=== PATIENT | female | born 1990 | race Caucasian/White ===

== ENCOUNTER 2019-11-14 09:17 | Outpatient (CLI) | payer OTHER, SELFPAY ==
--- NOTE | 2019-11-14 09:28 | XR_ITS ---
WS: [id number] LUMBAR SPINE FLEXION AND EXTENSION TECHNIQUE: 3 views of the lumbar spine: Lateral neutral, flexion, and extension views. CLINICAL INFORMATION: low back pain, INTERVERTEBRAL DISC DISORDER COMPARISON: June 15, 2019 FINDINGS: Normal lumbar alignment on the neutral view. No instability on the flexion and extension views. Disc space heights and vertebral body heights are well preserved. XR/XR lumbar spine f/e only [id number] IMPRESSION: No instability on flexion-extension
== END 2019-11-14 09:18 | disposition home or self-care (01) ==
LOC: WPI 09:21
PROVIDERS: Family Provider Nurse Practitioner Family; PCP Nurse Practitioner Family; Visit Provider Licensed Practical Nurse
DX: M51.86 Other intervertebral disc disorders, lumbar region (principal)
CPT/HCPCS: 72120

== ENCOUNTER 2019-12-05 06:00 | Outpatient (RCR) | payer OTHER, SELFPAY | END 2019-12-08 23:59 | disposition home or self-care (01) | LOC: TPT 06:00 | PROVIDERS: Family Provider Nurse Practitioner Family; PCP Nurse Practitioner Family; Referring Provider Licensed Practical Nurse; Visit Provider Licensed Practical Nurse | DX: M51.17 Intervertebral disc disorders with radiculopathy, lumbosacral region (principal) | CPT/HCPCS: 97110; 97161; 97530; G0283 ==

== ENCOUNTER 2019-12-09 06:00 | Outpatient (RCR) | payer OTHER, SELFPAY | END 2020-01-08 23:59 | disposition home or self-care (01) | LOC: TPT 06:00 | PROVIDERS: Family Provider Nurse Practitioner Family; PCP Nurse Practitioner Family; Referring Provider Licensed Practical Nurse; Visit Provider Licensed Practical Nurse | DX: M51.17 Intervertebral disc disorders with radiculopathy, lumbosacral region (principal) | CPT/HCPCS: 97110; 97140; 97530; G0283 ==

== ENCOUNTER 2020-01-09 06:00 | Outpatient (RCR) | payer OTHER, SELFPAY | END 2020-02-07 23:59 | disposition home or self-care (01) | LOC: TPT 06:00 | PROVIDERS: Family Provider Nurse Practitioner Family; PCP Nurse Practitioner Family; Referring Provider Licensed Practical Nurse; Visit Provider Licensed Practical Nurse | DX: M51.17 Intervertebral disc disorders with radiculopathy, lumbosacral region (principal) | CPT/HCPCS: 97110 ==

== ENCOUNTER 2020-07-13 10:45 | Emergency (ER) | payer OTHER, SELFPAY ==
[2020-07-13 11:10] VITALS: BP 98/63; PULSE 103; RESP 14; TEMP 36.3; O2SAT 98; BMI 30.1
[2020-07-13 11:53] LABS: Bilirubin Urine 1+ (Negative); Blood Urine 2+ (Negative); Glucose Urine UA Norm (Normal); Ketones Urine Negative (Negative); Nitrate Urine Positive (Negative); Specific Gravity, Urine 1.015 (1.005-1.030); Urine Appearance Hazy (CLEAR); Urine Color Dark Yellow (Yellow); Urobilinogen Urine 1 mg/dL (Negative); pH Urine 6 (5-7)
[2020-07-13 11:54] LABS: Add Urine Microscopic? YES; Leukocyte Esterase Urine Negative (Negative); Protein Urine 1+ (Negative)
[2020-07-13 12:10] LABS: RBC Urine 0-4 /hpf (0-2); Squamous Epithelial Cell Urine 25-40 /hpf (0-5)
[2020-07-13 12:11] LABS: Bacteria Urine 2+ /hpf
[2020-07-13] MEDS: ondansetron 2 mg/ML SDV 2 mL 4 MG IVP (12:32)
[2020-07-13] MEDS: sodium chloride 0.9% 1,000 ML 999 ML IV (12:32)
[2020-07-13 12:47] LABS: Basophils % 0.3 %; Eosinophils # 0.5 10^3/uL (0.0-0.8); Eosinophils % 6.9 %; Hematocrit 43.7 % (37.0-47.0); Hemoglobin 14.4 g/dL (11.5-15.3); Lymphocytes # 0.6 10^3/uL (0.8-4.8); Lymphocytes % 8.3 %; Mean Corpuscular Hemoglobin 30.3 pg (28.0-34.0); Mean Platelet Volume 9.4 fL (7.4-10.4); Monocytes # 0.6 10^3/uL (0.2-0.9); Monocytes % 8.6 %; Neutrophils # 5.04 10^3/uL (1.8-7.7); Neutrophils % 75.6 %; Nucleated Red Blood Cells % 0 %; Platelet Count 214 10^3/cmm (130-400); Red Blood Count 4.75 10^6/uL (4.1-5.3); Red Cell Distribution Width 12.7 % (12.1-15.1); White Blood Count 6.7 10^3/uL (4.0-10.0)
--- NOTE | 2020-07-13 13:00 | ED_ITS ---
HPI - General Adult General: Chief complaint: General Medical Stated complaint: BLADDER INFECTION/N/EVANS Time Seen by Provider: 07/13/20 11:39 Source: patient Mode of arrival: ambulatory Limitations: no limitations History of Present Illness: HPI narrative: 29-year-old female patient presents to the emergency department stating she has had nausea some vomiting. Patient states she was recently diagnosed with a urinary tract infection and was placed on antibiotics. Patient states she just feels weak from this. Patient denies any urinary symptoms at this time. Patient denies any fever. Patient denies any flank pain. Patient denies any abdominal pain. Associated symptoms: Reports nausea and vomiting; Deny chest pain, dyspnea, headache(s), rash or palpitations Review of Systems General: Reports: 10 or more systems reviewed and unremarkable except in HPI and below Const: Reports: body aches; Denies: fever(s) or chills Eyes: Denies: change in vision or blurry vision ENMT: Denies: throat pain, dental pain or ear or mastoid pain Card: Denies: chest pain, palpitations or irregular heart rhythm Resp: Denies: dyspnea or productive cough GI: Reports: nausea and vomiting; Denies: abdominal pain : Denies: flank pain, difficulty voiding, dysuria, urinary frequency or urinary urgency Musc: Denies: neck pain or back pain Skin/Breast: Denies: rash Neuro: Denies: headache(s), numbness in extremities or weakness in extremities Psych: Denies: anxiety, suicidal ideation or homicidal ideation FOR[facility]LY [facility] ED PFSH: Medical History Intervertebral disc disorder with radiculopathy of lumbosacral region Family History Father Hypertension Social History Smoking and tobacco status: current every day smoker Alcohol intake: current Alcohol intake frequency: holidays/special occasions only Household members: family and children Marital status: Single Current occupational status: employed Current occupation: Logistics History of recent travel: No Physical Exam Const: COMMON NORMALS: no acute distress, average body habitus, patient oriented x3, no limitations, healthy appearing, alert and well nourished HENMT: COMMON NORMALS: normocephalic, atraumatic, hearing grossly normal bilaterally, external ears normal, EAC's normal, TM's normal bilaterally, Normal external nose present, Normal nasal mucous membranes and turbinates present, moist oral mucous membranes, oropharynx normal, dentition normal and gingiva normal HEAD & SCALP: normocephalic and atraumatic NOSE: Normal external nose present and Normal nasal mucous membranes and turbinates present EXTERNAL EAR: Yes external ears normal EXTERNAL AUDITORY CANAL: EAC's normal TYMPANIC MEMBRANE: TM's normal bilaterally Eye: COMMON NORMALS: Equal, round and reactive pupils present, EOMs intact bi laterally, conjunctivae normal, no scleral icterus, no papilledema, normal visual gasca by confrontation and fundi normal bilaterally CONJUNCTIVA: Yes conjunctivae normal PUPIL: Yes Equal, round and reactive pupils present DIRECT OPHTHALMOSCOPY: Yes no papilledema and Yes fundi normal bilaterally Neck/C-Spine: COMMON NORMALS: full ROM, no lymphadenopathy, supple, no meningeal signs, Thyroid normal and No carotid bruits THYROID: Thyroid normal Chest: COMMONS NORMALS: normal inspection of the chest, normal palpation of entire chest wall, normal inspection of the breasts and normal palpation of the breasts Resp: COMMON NORMALS: normal respiratory effort, No retractions, No use of accessory muscles, clear to auscultation bilaterally and percussion normal AUSCULTATION: clear to auscultation bilaterally PERCUSSION: percussion normal Cardio: COMMON NORMALS: regular rate and regular rhythm RATE: regular rate RHYTHM: regular rhythm GI: COMMON NORMALS: Normal to inspection, nondistended, normoactive bowel sounds present, Soft to palpation, non-tender, No hepatosplenomegaly present, no masses and no bruits PALPATION: Yes Soft to palpation and Yes No hepatosplenomegaly present : COMMON NORMALS: Yes no CVA tenderness BLADDER/KIDNEY EXAM: Yes no CVA tenderness Back/Pelvis: COMMON NORMALS: no CVA tenderness, thoracic and lumbar spine normal to inspection, no thoracic nor lumbar tenderness, thoraco-lumbar ROM normal and straight leg raise negative bilaterally Extremity: COMMON NORMALS: normal to inspection, full ROM, capillary refill normal, no joint enlargement, no clubbing, cyanosis or edema, no calf tenderness and no pedal edema Neuro: COMMON NORMALS: patient oriented x3 SENSORIUM/ORIENTATION: Yes alert MENINGEAL SIGNS: Yes no meningeal signs Psych: COMMON NORMALS: mental status grossly normal, Normal thought process present, cooperative, normal affect, speech normal, activity/motor behavior normal, denies hallucinations, denies homicidal ideation and denies suicidal ideation SPEECH: Yes normal speech THOUGHT PROCESS: Normal thought process present Skin: COMMON NORMALS: no rashes or lesions noted, no wounds, turgor normal, no jaundice, no petechiae and no mottling GENERAL SKIN EXAM: no rashes or lesions noted and turgor normal Course Vital Signs: Vital signs: Vital Signs Temperature 97.3 F L 07/13/20 11:10 Pulse Rate 103 H 07/13/20 11:10 Respiratory Rate 14 07/13/20 11:10 Blood Pressure 98/63 07/13/20 11:10 Pulse Oximetry 98 07/13/20 11:10 MDM - General Adult MDM Narrative: Medical decision making narrative: Pt is well appearing non toxic and in no acute distress. 29-year-old female patient presents to the emergency department stating she has had nausea some vomiting. Patient states she was recently diagnosed with a urinary tract infection and was placed on antibiotics. Patient states she just feels weak from this. Patient denies any urinary symptoms at this time. Patient denies any fever. Patient denies any flank pain. Patient denies any abdominal pain Pt does not have abd tenderness pt does not have cva tenderness. Pt tolerated po fluids while here in the ER. Pt was given Zofran for nausea and had clinical improvement Based on patients urine results I will have her stop her bactrim and place her on Cipro at this time. I will send patient home with zofran. I do not suspect patient to have pyelonephritis at this time as patient does not have any back pain CVA tenderness patient is afebrile. Patient did receive 2 L of normal saline and did have some clinical improvement with this. I did order a COVID test on patient. I have advised patient until those results come back patient needs to self quarantine at home. I also discussed concerning findings for pyelonephritis when the patient should return to the emergency department for prompt attention. At this time I do not feel any further testing is warranted. Patient's labs did not reveal any other concerning findings other than her urine which revealed a urinary tract infection. Patient is medically cleared and appropriate for discharge Differential Diagnosis: Differential Diagnosis: UTI, pyelonephritis, kidney stone, COVID Lab Data: Labs: Lab Results 07/13/20 07/13/20 07/13/20 Range/Units 11:15 12:28 12:28 WBC 6.7 (4.0-10.0) 10^3/ uL RBC 4.75 (4.1-5.3) 10^6/u L Hgb 14.4 (11.5-15.3) g/dL Hct 43.7 (37.0-47.0) % MCV 92.0 (81-99) fL MCH 30.3 (28.0-34.0) pg MCHC 33.0 (30.0-36.0) g/dL RDW 12.7 (12.1-15.1) % Plt Count 214 (130-400) 10^3/c mm MPV 9.4 (7.4-10.4) fL Neut % (Auto) 75.6 % Lymph % (Auto) 8.3 % Nicollet % (Auto) 8.6 % Eos % (Auto) 6.9 % Baso % (Auto) 0.3 % Neut # (Auto) 5.04 (1.8-7.7) 10^3/u L Lymph # (Auto) 0.6 L (0.8-4.8) 10^3/u L Nicollet # (Auto) 0.6 (0.2-0.9) 10^3/u L Eos # (Auto) 0.5 (0.0-0.8) 10^3/u L Baso # (Auto) 0.0 (0.0-0.1) 10^3/u L Nucleated RBC % (a uto) 0 % Nucleated RBCs # 0.0 /100WBC Sodium 131 L (136-145) mmol/L Potassium 4.4 (3.5-5.1) mmol/L Chloride 95 L (98-107) mmol/L Carbon Dioxide 25 (22-29) mmol/L Anion Gap 15.4 (5-19) BUN 8 (6-20) mg/dL Creatinine 0.7 (0.5-0.9) mg/dL GFR Calculation 97.6 (90-130) mL/min Glucose 93 (65-115) mg/dL Calculated Osmolal ity 270 L (285-295) mOsm/k g Calcium 9.2 (8.5-10.5) mg/dL Total Bilirubin 0.3 (0.15-1.2) mg/dL AST 8 (0-32) U/L ALT 23 (0-33) U/L Alkaline Phosphata se 59 (35-105) IU/L Total Protein 7.2 (6.6-8.7) g/dL Albumin 4.3 (3.5-5.2) g/dL Globulin 2.9 (1.3-4.6) g/dL Urine Color Dark yellow (Yellow) Urine Appearance Hazy A (CLEAR) Urine pH 6 (5-7) Ur Specific Gravit y 1.015 (1.005-1.030) Urine Protein 1+ H (Negative) Urine Glucose (UA) Norm (Normal) Urine Ketones Negative (Negative) Urine Blood 2+ H (Negative) Urine Nitrate Positive H (Negative) Urine Bilirubin 1+ H (Negative) Urine Urobilinogen 1 H (Negative) mg/dL Ur Leukocyte Olivia ase Negative (Negative) Urine RBC 0-4 H (0-2) /hpf Urine WBC 10-15 H (0-5) /hpf Ur Squamous Epith Cells 25-40 H (0-5) /hpf Amorphous Sediment Not Reportable Urine Bacteria 2+ H (NONE) /hpf Discharge Plan Discharge Patient Disposition: Home Clinical Impression: Urinary tract infection Qualifiers: Urinary tract infection type: acute cystitis Hematuria presence: without hem aturia Qualified Code(s): N30.00 - Acute cystitis without hematuria Condition: Stable Prescriptions: New Cipro 250 mg tablet 250 mg PO BID 5 Days Qty: 10 RF: 0 Zofran 4 mg tablet 4 mg PO Q8H Qty: 14 RF: 0 No Action phentermine 37.5 mg capsule 37.5 mg PO DAILY RF: 0 ibuprofen 200 mg tablet 400 mg PO Q6H PRN (Reason: PAIN/FEVER) RF: 0 sulfamethoxazole-trimethoprim 800-160 mg tablet 1 tab PO DAILY RF: 0 Discharge Orders: Discharge Order (Routine); Ordered 07/13/20 Ordered By: Allyson Harris Referrals: Funmi Serrano APN [Primary Care Provider] - Discharge Diet: Advance as tolerated Discharge Activity: Increase activity as tolerated Activity Restrictions/Additional Instructions: PLease follow up with your PCP Please take antibiotics as prescribed please stop taking your previously prescribed Please take Zofran as needed for nausea Please stay hydrated Please return to ER with any worsening of symotoms, inability to keep fluids down worsening of pain Please self quarantine until Covid results are known Coding Level of Care Code ED General Counselor for Yamileth Fwdebra Exam Comprehensive
[2020-07-13 13:05] LABS: Alanine Aminotransferase 23 U/L (0-33); Albumin Level 4.3 g/dL (3.5-5.2); Alkaline Phosphatase 59 IU/L (35-105); Anion Gap 15.4 (5-19); Aspartate Amino Transferase 8 U/L (0-32); Blood Urea Nitrogen 8 mg/dL (6-20); Calcium 9.2 mg/dL (8.5-10.5); Carbon Dioxide 25 mmol/L (22-29); Chloride 95 mmol/L (98-107); Globulin 2.9 g/dL (1.3-4.6); Glomerular Filtration Rate 97.6 mL/min (90-130); Glucose 93 mg/dL (65-115); Osmolality Calculated 270 mOsm/kg (285-295); Potassium 4.4 mmol/L (3.5-5.1); Sodium 131 mmol/L (136-145); Total Bilirubin 0.3 mg/dL (0.15-1.2); Total Protein 7.2 g/dL (6.6-8.7)
[2020-07-13 14:51] VITALS: BP 105/78; PULSE 91; RESP 16; O2SAT 100
[2020-07-14 21:49] LABS: Coronavirus Lab Test PTC Negative
--- NOTE | 2020-07-15 09:01 | PC.NURSE ---
pt contacted and given the results of her COVID test
== END 2020-07-13 14:51 | disposition home or self-care (01) ==
PROVIDERS: Emergency Provider Registered Nurse; PCP Nurse Practitioner Family
DX: N30.00 Acute cystitis without hematuria (principal); F17.210 Nicotine dependence, cigarettes, uncomplicated
CPT/HCPCS: 12345; 80053; 81001; 85025; 87635; 96361; 96374; 99283; J2405; J7030

== ENCOUNTER 2020-12-15 15:34 | Outpatient (CLI) | payer OTHER, SELFPAY ==
--- NOTE | 2020-12-15 15:43 | XR_ITS ---
WS: [id number] LEFT HAND: 3 VIEW(S) TECHNIQUE: PA, oblique and lateral. HISTORY: PAIN IN LEFT HAND, AND LEFT RING FINGER COMPARISON: None available. Suspect small avulsion fracture from the base of the middle phalanx of the fourth digit. This could b e a small osteophyte but as this is the location of pain and there is soft tissue edema this is likel y a small avulsion fracture. No additional abnormality. XR/XR hand LT min 3V* [id number] IMPRESSION: Tiny avulsion fracture from the volar surface base middle phalanx fourth finger .
== END 2020-12-15 15:35 | disposition home or self-care (01) ==
PROVIDERS: PCP Nurse Practitioner Family; Visit Provider Nurse Practitioner Family
DX: S62.625A Displaced fracture of middle phalanx of left ring finger, initial encounter for closed fracture (principal); X58.XXXA Exposure to other specified factors, initial encounter
CPT/HCPCS: 73130

== ENCOUNTER → 2021-05-11 12:54 | Outpatient (BNVA) | payer OTHER, SELFPAY | PROVIDERS: PCP Nurse Practitioner Family; Visit Provider Nurse Practitioner Family | DX: Z20.822 Contact with and (suspected) exposure to COVID-19 (principal) | CPT/HCPCS: 87635 ==

== ENCOUNTER → 2021-05-29 14:30 | Outpatient (BNVA) | payer OTHER, SELFPAY | PROVIDERS: PCP Nurse Practitioner Family; Visit Provider Obstetrics & Gynecology | DX: Z12.4 Encounter for screening for malignant neoplasm of cervix (principal) | CPT/HCPCS: 88175 ==

== ENCOUNTER 2025-08-03 19:22 | Emergency (ER) | payer OTHER, SELFPAY ==
--- OUTSIDE RECORDS SUMMARY | 2025-08-02 05:00 | XMS_ITS ---
Author Organization [facility] Address [address] [place] [address] Care Team Providers Care Family Services Specialist Name Role Phone Zach, [facility] Primary Care Provider LAKSHMI JIMENEZ Unavailable Unavailable Results Component Value Reference Range Notes UA Without Micro-Auto, [place] - [id number] Reviewed date:08/02/2025 11:42:25 AM Interpretation: Performing Lab: Notes/Report: Color straw Clarity clear Glucose neg Bili 1+ Ketones neg Sp Fletcher 1.025 Blood 10+ pH 6.0 Protein +15 Urobili 0.2 Nitrites neg Leukocytes neg REASON FOR VISIT Patient to clinic to drop off urine for possible UTI. Medications Medication SIG (Take, Route, Frequency, Duration) Notes Start Date End Date Status Sulfamethoxazole-Trimeth oprim 800-160 MG Tablet 1 tablet Orally twice a day; Duration: 10 08/02/2025 08/22/2025 Active Phentermine HCl 37.5 MG Tablet TAKE 1 TABLET BY MOUTH ONCE DAILY FOR 30 DAYS Oral; Duration: 30 Days 07/22/2025 08/21/2025 Active Terbinafine HCl 250 MG Tablet 1 tablet Orally Once a day; Duration: 30 days Not-Takin g Norethindrone 0.35 MG Tablet Take 1 tablet by mouth once daily; Duration: 28 Active Ibuprofen 800 MG Tablet 1 tab Orally Thr ee times a day pc prn inflammatory pain; Duration: 30 days 04/29/2025 Active Encounters Encounter Location Date Provider Diagnosis [facility] Office [address] [address] 08/02/2025 [facility] Dysuria R30.0 and Hematuria R31.9 Assessments Encounter Date Diagnosis (ICD Code) Assessment Notes Treatment Notes Treatment Clinical Notes Section Notes 08/02/2025 Dysuria (ICD-10 - R30.0) Called patient with results and information about script.Go to ER with any issues over weekend. 08/02/2025 Hematuria (ICD-10 - R31.9) Plan Of Treatment Medication Medication Name Sig Start Date Stop Date Notes Sulfamethoxazole-Trimethopri m 800-160 MG Tablet 1 tablet Orally twice a day; Duration: 08/02/2025 08/22/2025 Treatment Notes Assessment Notes Dysuria Called patient with results and information about script.Go to ER with any issues over weekend. Next Appt Details Provider Name:Funmi Serrano, 08/22/2025 04:20:00 PM, [address] [place] [address], [address], [phone], Progress Notes * ANAHY KWAN DDOB:[birth year] (35 yo F)Acc No.[id number]:08/02/2025 Progress Note Patient: Deanna NEWTON ANAHY Marc Provider: Laverne Serrano CHECK PROCESSING CLERK :1990 A ge:35 Y S ex:Female Date:08/02/2025 Address:[address] [place], [place] [id number] Check In:10:00 AM CSTCheck O ut:10:09 AM RUG SETTER VELVET Subjective: * Chief Complaints: * P atient to clinic to drop off urine for possible UTI. * Medications: T akingIbuprofen 800 MG Tablet 1 tab Orally Three times a day pc prn inflammatory pain Norethindrone 0.35 MG Tablet Take 1 tablet by mouth once daily Phentermine HCl 37.5 MG Tablet TAKE 1 TABLET BY MOUTH ONCE DAILY FOR 30 DAYS Oral , stop date 08/21/2025Taking Ibuprofen 800 MG Tablet 1 tab Orally Three times a day pc prn inflammatory pain Taking Norethindrone 0.35 MG Tablet Take 1 tablet by mouth once daily Taking Phentermine HCl 37.5 MG Tablet TAKE 1 TABLET BY MOUTH ONCE DAILY FOR 30 DAYS Oral , stop date 08/21/2025Not-TakingTerbinafine HCl 250 MG Tablet 1 tablet Orally Once a day Not-Taking Terbinafine HCl 250 MG Tablet 1 tablet Orally Once a day Assessment: * Assessment: 1. D ysuria - R30.0 (Primary) 2 . H ematuria - R31.9 Plan: * Treatment: Value Reference Range C olor straw * C larity clear * G lucose neg * B vivian 1+ * K etones neg * S p Fletcher 1.025 * B lood 10+ * p H 6.0 * P rotein +15 * U robili 0.2 * N itrites neg * L eukocytes neg Notes: Called patient with results and information about script.Go to ER with any issues over weekend.???2.?Hematuria? Start Sulfamethoxazole-Trimethoprim Tablet, 800-160 MG, 1 tablet, Orally, twice a day, 10, 20, Start Date: 08/02/2025, Stop Date: 08/22/2025, Refills 1.?? * Procedure Codes: 8 1003 URINALYSIS, AUTO, W/O SCOPE, Modifiers: QW Billing Information: * Procedure Codes: 70952 URINALYSIS, AUTO, W/O SCOPE. Modifiers: QW * Sign off status: Completed true * Provider: Laverne Serrano APRN Date: Generated for Etienne gifford/Rekha/Ileana on: 07:28 PM CDT
[2025-08-03 19:26] VITALS: BP 118/80; PULSE 110; RESP 18; TEMP 36.8; O2SAT 98; BMI 31.8
--- OUTSIDE RECORDS SUMMARY | 2025-08-03 19:28 | XMS_ITS | Patient Health Record ---
Author Organization [facility] Address [address] [place] [address] Care Team Providers Care Director Service Name Role Phone Serrano, Funmi Primary Care Provider [phone] LAKSHMI JIMENEZ Unavailable Unavailable Allergies No Known Allergies Results Component Value Reference Range Flag Notes UA Without Micro-[place], [place] - [address] Reviewed date:08/02/2025 11:42:25 AM Interpretation: Performing Lab: Notes/Report: Color straw Clarity clear Glucose neg Bili 1+ Ketones neg Sp [place] 1.025 Blood 10+ pH 6.0 Protein +15 Urobili 0.2 Nitrites neg Leukocytes neg Hemoglobin A1c 37477 Reviewed date:2025 01:02:17 PM Interpretation: Performing Lab: Notes/Report: Diagnosis Description: Encounter for screening for lipoid disorders Hgb A1c 5.1 3.8-6.4 % Interpretation Of Hgb A1c: 4.5-6.2 % nondiabetics. >7.0 % diabetics. EAG 100 NA Estimated Aver age Glucose(EAG). CBC w\ Auto Diff 16829 Reviewed date:2025 01:02:17 PM Interpretation:Normal Performing Lab: Notes/Report: Diagnosis Description: Overweight or obesity WBC 9.7 4.5-11.0 X10'3 RBC 4.79 4.00-5.20 X10'6 Hgb 14.7 12.0-16.0 G/DL Hct 46.0 36.0-46.0 % MCV 96.0 80.0-100.0 FL MCH 30.7 27.0-31.0 PG MCHC 32.0 31.0-37.0 G/DL Platelet 321 150-400 X10'3 RDW-SD 47.3 35.0-49.0 FL RDW-CV 13.2 12.2-15.6 % MPV 9.5 9.2-12.0 FL Neutro Auto% 62.5 40.0-70.0 % Lymph Auto% 27.4 22.0-44.0 % [place] Auto% 5.4 3.0-7.0 % Eos Auto% 3.7 2.0-4.0 % Baso Auto% 0.8 0.0-1.0 % Imm Gran% .2 .0-.4 % Neutro Abs 6.07 .80-7.70 Absolute Neutrophil Count 6070 NA Lymph Abs 2.66 .10-4.10 [place] Abs .52 .20-1.00 Eos Abs .36 .00-.40 Baso Abs .08 .00-.20 Imm Gran Abs .02 .00-.10 NRBC# .00 .00-.20 X10'3 NRBC% .00 .00-.20 /100 int act WBC's Lipid Panel Reflex DLDL 8006 1, 99524 Reviewed date:2025 01:02:17 PM Interpretation: Performing Lab: Notes/Report: Diagnosis Description: Encounter for screening for lipoid disorders Trig 105 NA 0-4 yr 34-112 5-9 yr 32-105 0-4 yr 22-99 10-14 yr 37-131 Classification Guidelines:Triglycerides 15-19 yr 39-132 Children: Male Adults: >20yrs Desirable <150 Borderline High 150-199 5-9 yr 30-101 10-14 yr 32-125 15-19 yr 37-148 High 200-499 Very high >=500 Children: Female Chol 163 <=200 MG/DL HDL 38 39-96 MG/DL LOW 5-9y 38-75 15-19y 30-63 Female: 5-9y 36-73 10-14y 37-70 10-14y 37-74 15-19y 35-74 >=20y 40-59 >=20y 40-59 Male: Reference Ranges:HDL CH/HDL 4.2 0.0-4.9 RATIO LDL 104 0-130 MG/DL LDL result is inaccurate , if Trig is >400 mg/dl. See DLDL result. Thyroid Stimulating Hormone (TSH) 85102 Reviewed date:2025 01:02:17 PM Interpretation: Performing Lab: Notes/Report: Diagnosis Description: Encounter for screening for other suspected endocrine disorder TSH 2.762 .358-3.740 MlU/ML Comprehensive Metabolic Pane l (CMP) 26499 Reviewed date:2025 01:02:17 PM Interpretation: Performing Lab: Notes/Report: Diagnosis Description: Overweight or obesity Glucose Serum 93 71-110 MG/DL Testing p erformed at [facility], [address] [place] [address] [place] [address]. CLIA ID#: [id number] BUN 9 7-21 MG/DL Creat .67 .51-1.17 MG/DL W-msnhex-p-benzoquinone imine (NAPQI) is a metabolite of acetaminophen, NAPQI concentrations of apparoximately 10 mg/L correlation to toxic levels of acetaminophen demonstrates a greater than or equil to 10% change in results. NAPQI concentrations greater than this may lead to falsely depressed results for patient samples. Use of this assay is not recommended for patients undergoing treatment with phenindione, due to the potential for falsely depressed results. GFR 115.5 NA Calculation pe rformed from GFR calculator provided by the [employer]. Glomerular Filtration rate(GRF) is the best overall index of kidney function. Normal GFR varies according to age,sex, body size, and declines with age. The [employer] recommends using the CKD-EPI Creatinine Equation(2020) to estimate GFR. BUN/Creat Ratio 13.4 12.0-20.0 % Total Protein 7.4 5.8-8.0 G/DL Albumin 4.5 3.2-4.8 G/DL Globulin 2.9 2.3-3.5 G/DL Alb/Glob 1.6 0.8-2.2 Calcium 9.4 8.7-10.4 MG/DL Sodium 140 136-145 MMOL/L Potassium 4.2 3.5-5.1 MMOL/L Chloride 102 98-107 MMOL/L CO2 27.2 20.0-31.0 MMOL/L Anion Gap 15 5-15 Alk Phos 60 46-116 Bili Total .3 .3-1.2 MG/DL Use of this assay is not recommended for patients undergoing treatment with eltrombopag due to the potential for falsely elevated results. AST/SGOT 8 15-37 UNIT/L LOW ALT/SGPT 19 12-78 UNIT/L [place] Serum,Calculated 288 280-300 MOSM/KG Cervical Cancer Screen 36967 , 95592 Reviewed date:05/24/2025 12:24:34 PM Interpretation:Normal Performing Lab: Notes/Report: Diagnosis Description: Encounter for screening for malignant neoplasm of cervix Cervical Cancer Screen 39030 , 02394 Reviewed date:05/24/2025 12:24:34 PM Interpretation:Normal Performing Lab: Notes/Report: Diagnosis Description: Encounter for screening for malignant neoplasm of cervix Reason For Referral No Information Medications Medication SIG (Take, Route, Frequency, Duration) Notes Start Date End Date Status Sulfamethoxazole-Trimeth oprim 800-160 MG Tablet 1 tablet Orally twice a day; Duration: 08/02/2025 08/22/2025 Active Phentermine HCl 37.5 MG [...] inflammatory pain; Duration: 30 days 04/29/2025 Active Immunizations Vaccine Route Administration Date Status Comme nts Flucelvax Trivalent, Syringe 0.5 mL, PF Unknown 024 Refused Social History Tobacco Use: Social History Observation Description Date Details (start date - stop date) Current Smoker NA - NA Social History Depression Screening Social Info Question Answer Notes depression screening findings Findings Negative (0 -4) PHQ-9 Little interest or p jonathan in doing things Not at all Feeling down, depressed, or hopeless Not at all Trouble falling or staying asleep, or sleeping t oo much Not at all Feeling tired or having little energy Not at all Poor appetite or overeating Not at all Feeling bad about yourself, or that you are a failure, or have let yourself or your family down Not at all Trouble concentrating on thi ngs, such as reading the newspaper or watching television Not at all Moving or speaking so slowly that other people could have noticed. Or the opposite ? being so fidgety or restless that you have been moving around a lot more than usual Not at all Thoughts that you would be b margaux off , or of hurting yourself in some way Not at all Total Score 0 Drugs/Alcohol: Social Info Question Answer Notes Alcohol Screen (Audit-C) Did you have a drink containing alcohol in the past year? No Points 0 Interpretation Negative Tobacco Use: Social Info Question Answer Notes Tobacco Control (Standard) Tobacco use: Current smoker How often do you smoke cigarettes? Every day How many cigarettes a day do you smoke? 21-30 Are you interested in quitting? Not ready to quit Section Notes: Depression screen 07/05/2024 score 0, PHQ9 03/28/2025 Depression screen 05/20/2023 score 0 Depression screen 05/20/2023 score 0 Depression screen 07/05/2024 score 0 Depression screen 07/05/2024 score 0 Depression screen 07/05/2024 score 0 Depression screen 07/05/2024 score 0 Depression screen 07/05/2024 score 0 Depression screen 07/05/2024 score 0 Depression screen 07/05/2024 score 0 Depression screen 07/05/2024 score 0, PHQ9 03/28/2025 Depression screen 07/05/2024 score 0, PHQ9 03/28/2025 Depression screen 07/05/2024 score 0, PHQ9 03/28/2025 Depression screen 07/05/2024 score 0 Depression screen 05/20/2023 score 0 Depression screen 05/20/2023 score 0 Depression screen 05/20/2023 score 0 Depression screen 05/20/2023 score 0 Depression screen 05/20/2023 score 0 Depression screen 05/20/2023 score 0 Depression screen 05/20/2023 score 0 Depression screen 05/20/2023 score 0 Depression screen 05/20/2023 score 0 08/10/22 PHQ9 08/10/22 PHQ9 Depression screen 05/20/2023 score 0 Depression screen 07/05/2024 score 0, PHQ9 03/28/2025 Problems Problem Type SNOMED Code ICD Code Onset Dates Problem Status W/U Status Risk Notes Problem Tobacco user (048409264) Nicotine dependence, cigarettes, uncomplicated (F17.210) Active confirmed Problem Sinusitis (54835604) Sinusitis (J32.9) Active confirmed Problem Obesity (502504214) Obesity (BMI 30-39.9) (E66.9) Active confirmed Problem Overweight (265827067) Overweight (BMI 25.0-29.9) (E66.3) Active confirmed Problem Body mass index 30.00 to 34.99 (7596673956266 07) Body mass index [BMI] 31.0-31.9, adult (Z68.31) Active confirmed Problem Body mass index 30.00 to 34.99 (3706466091453 07) Body mass index [BMI] 32.0-32.9, adult (Z68.32) Active confirmed Problem Body mass index 30.00 to 34.99 (8689068220957 07) Body mass index [BMI] 33.0-33.9, adult (Z68.33) Active confirmed Problem Obese class II (7407975900784 05) Body mass index [BMI] 35.0-35.9, adult (Z68.35) Active confirmed Problem Body mass index 35.00 to 39.99 (9408798184312 05) Body mass index [BMI] 36.0-36.9, adult (Z68.36) Active confirmed Problem Body mass index 35.00 to 39.99 (1720880865510 05) Body mass index [BMI] 37.0-37.9, adult (Z68.37) Active confirmed Vital Signs Heart Rate 100 /min 07/22/2025 Temperature 97.3 degrees Fahrenheit 07/22/2025 Respiratory Rate 18 /min 07/22/2025 Blood pressure diastolic 73 mm Hg 07/22/2025 Oximetry 99 % 07/22/2025 Height-cm 162.56 cm 07/22/2025 Weight-kg 81.65 kg 07/22/2025 Height 64 in 07/22/2025 Blood pressure systolic 103 mm Hg 07/22/2025 Weight 180 lbs 07/22/2025 BMI 30.89 kg/m2 07/22/2025 Encounters Encounter Location Date Provider Diagnosis [facility] Office [address] [address] 09/03/2024 Funmi Serrano Sinusitis J32.9 and Obesity (BMI 30-39.9) E66.9 [facility] [place] [facility] [address] [place] [address] 10/29/2024 Funmi Serrano Obesity (BMI 30-39.9 ) E66.9 [facility] [address] [facility] [address] [place] [address] 12/04/2024 Funmi Serrano Obesity (BMI 30-39.9 ) E66.9 [facility] [address] [place] [address] 12/31/2024 Funmi Serrano Obesity (BMI 30-39.9 ) E66.9 [facility] [address] [place] [address] 01/31/2025 Funmi Serrano Obesity (BMI 30-39.9 ) E66.9 [facility] [address] [place] [address] 02/19/2025 Funmi Serrano Obesity (BMI 30-39.9 ) E66.9 and Weight gain R63.5 [facility] [place] [facility] [address] [place] [address], [place] [address] 03/28/2025 Funmi Serrano Depression screen Z1 3.31 and Obesity (BMI 30-39.9) E66.9 [facility] [address] [place] [address] 04/29/2025 Funmi Serrano Obesity (BMI 30-39.9 ) E66.9 ; Chronic lumbar radiculopathy M54.16 and Cervical cancer screening Z12.4 [facility] [place] [facility] [address] [place] [address] 05/30/2025 Funmi Serrano Obesity (BMI 30-39.9 ) E66.9 [facility] [address] [place] [address] 07/01/2025 Funmi Serrano Obesity (BMI 30-39.9 ) E66.9 ; Encounter for weight management Z76.89 ; Thyroid disorder screen Z13.29 and Lipid screening Z13.220 [facility] [address] [place] [address] 07/17/2025 [facility] Thyroid disorder scr een Z13.29 and Lipid screening Z13.220 [facility] Office [address] [address] 07/22/2025 [facility] Obesity (BMI 30-39.9 ) E66.9 and Weight gain R63.5 [facility] [address] [address] 08/02/2025 [facility] Dysuria R30.0 and Hematuria R31.9 [facility] [address] [address] 08/30/2024 [facility] Encounter for immunization Z23 and Immunization not carried out because of patient refusal Z28.21 Assessments Encounter Date Diagnosis (ICD Code) Assessment Notes Treatment Notes Treatment Clinical Notes Section Notes 07/01/2025 Encounter for weight management (ICD-10 - Z76.89) 08/02/2025 Dysuria (ICD-10 - R30.0) Called patient with results and information about script.Go to ER with any issues over weekend. 08/02/2025 Hematuria (ICD-10 - R31.9) 07/17/2025 Lipid screening (ICD-10 - Z13.220) Labs for TWard, orders in chart. 07/17/2025 Thyroid disorder screen (ICD-10 - Z13.29) Labs for TWard, orders in chart. 05/30/2025 Obesity (BMI 30-39.9) (ICD-10 - E66.9) Discussed with the diet, increase water intake, increase activity, decrease calorie intake, take medication as directed; phentermine e script to patient pharmacy. Patient to lose minimum of 4 pounds and return to clinic 1 month and prn. Pts questions asked and answered. Discharged to home. 03/28/2025 Obesity (BMI 30-39.9) (ICD-10 - E66.9) Discussed with the diet, increase water intake, increase activity, decrease calorie intake, take medication as directed; phentermine e script to patient pharmacy. Patient to lose minimum of 4 pounds and return to clinic 1 month and prn. Pts questions asked and answered. Discharged to home. 03/28/2025 Depression screen (ICD-10 - Z13.31) 02/19/2025 Obesity (BMI 30-39.9) (ICD-10 - E66.9) Discussed with the diet, increase water intake, increase activity, decrease calorie intake, take medication as directed; phentermine e script to patient pharmacy. Patient to lose minimum of 4 pounds and return to clinic 1 month and prn. Pts questions asked and answered. Discharged to home. 02/19/2025 Weight gain (ICD-10 - R63.5) 01/31/2025 Obesity (BMI 30-39.9) (ICD-10 - E66.9) intermittant fasting handout 12/31/2024 Obesity (BMI 30-39.9) (ICD-10 - E66.9) Discussed with the diet, increase water intake, increase activity, decrease calorie intake, take medication as directed; phentermine e script to patient pharmacy. Patient to lose minimum of 4 pounds and return to clinic 1 month and prn. Pts questions asked and answered. Discharged to home. 12/04/2024 Obesity (BMI 30-39.9) (ICD-10 - E66.9) Discussed with the diet, increase water intake, increase activity, decrease calorie intake, take medication as directed; phentermine e script to patient pharmacy. Patient to lose minimum of 4 pounds and return to clinic 1 month and prn. Pts questions asked and answered. Discharged to home. 10/29/2024 Obesity (BMI 30-39.9) (ICD-10 - E66.9) Discussed with the diet, increase water intake, increase activity, decrease calorie intake, take medication as directed; phentermine e script to patient pharmacy. Patient to lose minimum of 4 pounds and return to clinic 1 month and prn. Pts questions asked and answered. Discharged to home. 08/30/2024 Encounter for immunization (ICD-10 - Z23) 04/29/2025 Obesity (BMI 30-39.9) (ICD-10 - E66.9) Discussed with the diet, increase water intake, increase activity, decrease calorie intake, take medication as directed; phentermine e script to patient pharmacy. Patient to lose minimum of 4 pounds and return to clinic 1 month and prn. Pts questions asked and answered. Discharged to home. 04/29/2025 Chronic lumbar radiculopathy (ICD-10 - M54.16) ibuprofen 07/01/2025 Obesity (BMI 30-39.9) (ICD-10 - E66.9) 07/22/2025 Obesity (BMI 30-39.9) (ICD-10 - E66.9) Discussed with the diet, increase water intake, increase activity, decrease calorie intake, take medication as directed; phentermine e script to patient pharmacy. Patient to lose minimum of 4 pounds and return to clinic 1 month and prn. Pts questions asked and answered. Discharged to home. 07/22/2025 Weight gain (ICD-10 - R63.5) 09/03/2024 Sinusitis (ICD-10 - J32.9) amoxicillin medrol ldose pack 09/03/2024 Obesity (BMI 30-39.9) (ICD-10 - E66.9) Discussed with the diet, increase water intake, increase activity, decrease calorie intake, take medication as directed; phentermine e script to patient pharmacy. Patient to lose minimum of 4 pounds and return to clinic 1 month and prn. Pts questions asked and answered. Discharged to home. 07/01/2025 Thyroid disorder screen (ICD-10 - Z13.29) tsh 04/29/2025 Cervical cancer screening (ICD-10 - Z12.4) pap 08/30/2024 Immunization not carried out because of patient refusal (ICD-10 - Z28.21) 07/01/2025 Lipid screening (ICD-10 - Z13.220) ha1c lipids 09/03/2024 Other Questions asked and answered; discharged to home. 10/29/2024 Other Questions asked and answered; discharged to home. 12/04/2024 Other Questions asked and answered; discharged to home. 12/31/2024 Other Questions asked and answered; discharged to home. 01/31/2025 Other Questions asked and answered; discharged to home. 02/19/2025 Other Questions asked and answered; discharged to home. 03/28/2025 Other Questions asked and answered; discharged to home. 04/29/2025 Other Questions asked and answered; discharged to home. 05/30/2025 Other Questions asked and answered; discharged to home. 07/01/2025 Other Questions asked and answered; discharged to home. 07/17/2025 Other Venipuncture performed. Right arm. One attempt. Pt tolerated well, bleeding controlled [facility] orders in chart. 07/22/2025 Other Questions asked and answered; discharged to home. Plan Of Treatment Future Test Test Name Order Date CBC w\ Auto Diff 42080 07/01/2025 Comprehensive Metabolic Panel (CMP) 8005 3 07/01/2025 Hemoglobin A1c 62544 07/01/2025 Lipid Panel Reflex DLDL 72653, 30826 Thyroid Stimulating Hormone (TSH) 42580 07/01/2025 Next Appt Details Provider Name:Funmi Serrano, 08/22/2025 04:20:00 PM, [address] [place] [address], [phone], Insurance Providers Payer Name Payer Address Payer Phone Subscriber Number Group Number Insured Name Patient Relationship to Insured Coverage Start Date Coverage End Date [facility] [employer] [address] [place] [phone] [id number] ANAHY KWAN Self - patient is the insured Medical (General) History Surgical History Surgery Date(Month/Year) surgery on right index finger Hospitalization History Reason Date(Month/Year) childbirth
[2025-08-03] MEDS: ondansetron 2 mg/ML SDV 2 mL 4 MG IVP (19:59)
[2025-08-03 20:02] VITALS: BP 99/64; PULSE 96; RESP 16; O2SAT 96
[2025-08-03 20:06] LABS: Hematocrit 44.8 % (36-47); Hemoglobin 14.90 g/dL (11.27-16.99); Mean Corpuscular HGB Conc 33.3 g/dL (30-55); Mean Corpuscular Hemoglobin 30.8 pg (27-33); Mean Corpuscular Volume 92.8 fl (85-98); Nucleated Red Blood Cells % 0 %; Platelet Count 295 10^3/cmm (157-399); Red Blood Count 4.83 10^6/uL (3.85-5.65); White Blood Count 9.38 10^3/uL (3.29-11.43)
[2025-08-03 20:21] LABS: Alanine Aminotransferase 18 U/L (0-33); Albumin Level 4.7 g/dL (3.5-5.2); Alkaline Phosphatase 75 U/L (35-105); Anion Gap 20.3 (5-19); Aspartate Amino Transferase 7 U/L (0-32); Blood Urea Nitrogen 4 mg/dL (6-20); Calcium 9.5 mg/dL (8.5-10.5); Carbon Dioxide 23 mmol/L (22-29); Chloride 94 mmol/L (98-107); Creatinine Clr Calc Pharmacy 97.4280; Globulin 3.3 g/dL (1.3-4.6); Glucose 104 mg/dL (65-115); Lipase 17 U/L (13-60); Osmolality Calculated 273 mOsm/kg (285-295); Potassium 4.3 mmol/L (3.5-5.1); Sodium 133 mmol/L (136-145); Total Protein 8.0 g/dL (6.6-8.7)
--- NOTE | 2025-08-03 20:33 | W.ED.FEMALGU ---
HPI - Female Genitourinary General: Chief complaint: Urogenital-Female Stated complaint: uti n/v symptoms worse Time Seen by Provider: 08/03/25 19:34 History of Present Illness: Patient is a pleasant 35-year-old female that presents to the ED with dysuria, more of a discomfort and hesitancy, nausea, and vomiting multiple times, and just not feeling well. Yesterday at her doctor at [facility], she was diagnosed with UTI, and started on Bactrim. She has had 3 full doses of Bactrim, however symptoms have continued to worsen. She denies any flank pain. Associated symptoms: Reports nausea; Deny abdominal pain or headache(s) Related Data Home Medications ?Medication ?Instructions ?Recorded ?Confirmed ibuprofen 200 mg tablet 400 mg PO Q6H PRN PAIN/FEVER 11/14/19 05/29/21 norethindrone (contraceptive) 0.35 0.35 mg PO DAILY 05/29/21 05/29/21 mg tablet (Cynthia) Previous Rx's ?Medication ?Instructions ?Recorded clotrimazole 1 % topical cream 1 applic topical BID 2 weeks #30 05/06/21 grams mupirocin 2 % topical ointment 1 applic topical BID #22 grams 05/06/21 sulfamethoxazole 800 1 tab PO BID #20 tabs 05/29/21 mg-trimethoprim 160 mg tablet (Bactrim DS) cefdinir 300 mg capsule 300 mg PO BID 10 days #20 caps 08/03/25 ondansetron 4 mg disintegrating 4 mg PO Q8H PRN nausea and 08/03/25 tablet vomiting 4 days #14 tabs Allergies Allergy/AdvReac Type Severity Reaction Status Date / Time Penicillins Allergy Hives Verified 08/03/25 19:33 Review of Systems General: Reports: 10 or more systems reviewed and unremarkable except in HPI and below Const: Reports: body aches, fatigue and malaise; Denies: fever(s) or chills ENMT: Denies: throat pain or mouth pain Card: Denies: chest pain or palpitations Resp: Denies: dyspnea or productive cough GI: Reports: nausea and vomiting; Denies: abdominal pain : Reports: difficulty voiding (discomfort); Denies: flank pain, dysuria, urinary frequency, urinary urgency or urinary hesitancy Musc: Denies: neck pain or back pain Neuro: Denies: headache(s) or numbness in extremities PFSH ED PFSH: Medical History (Updated 08/03/25 @ 23:50 by JENNY Morales) Intervertebral disc disorder with radiculopathy of lumbosacral region Family History (Updated 05/29/21 @ 13:59 by My Castro LPN) Father Hypertension Diabetes Grandmother CAD (coronary artery disease) Maternal and Paternal Cancer Lung Grandfather Hyperlipidemia Paternal Hypertension Paternal Mother Cancer Lung Diabetes Hypertension Denies family history of Clotting disorder Chronic kidney disease (CKD) Bleeding disorder Stroke Social History Smoking and tobacco/nicotine status: current every day tobacco/nicotine user Alcohol intake: current Alcohol intake frequency: holidays/special occasions only Substance/Drug Use: never Household members: family and children Marital status: Single Current occupational status: employed Current occupation: Logistics Physical Exam Const: COMMON NORMALS: no acute distress, average body habitus and patient oriented x3 HENMT: COMMON NORMALS: normocephalic and atraumatic HEAD & SCALP: normocephalic and atraumatic Chest: COMMONS NORMALS: normal inspection of the chest Resp: COMMON NORMALS: normal respiratory effort, No retractions and clear to auscultation bilaterally AUSCULTATION: clear to auscultation bilaterally Cardio: COMMON NORMALS: regular rate and regular rhythm RATE: regular rate RHYTHM: regular rhythm GI: COMMON NORMALS: Normal to inspection, nondistended, normoactive bowel sounds present, Soft to palpation, non-tender and No hepatosplenomegaly present PALPATION: Yes Soft to palpation and Yes No hepatosplenomegaly present : COMMON NORMALS: Yes no CVA tenderness BLADDER/KIDNEY EXAM: Yes no CVA tenderness Back/Pelvis: COMMON NORMALS: no CVA tenderness Extremity: COMMON NORMALS: normal to inspection, full ROM and capillary refill normal Neuro: COMMON NORMALS: patient oriented x3 Psych: COMMON NORMALS: mental status grossly normal, Normal thought process present, cooperative, normal affect and speech normal SPEECH: Yes normal speech THOUGHT PROCESS: Normal thought process present Course Vital Signs: Vital signs: Vital Signs Temperature 98.3 F 08/03/25 19:26 Pulse Rate 101 H 08/03/25 23:45 Respiratory Rate 17 08/03/25 23:45 Blood Pressure 103/61 08/03/25 23:45 Pulse Oximetry 96 08/03/25 23:45 Oxygen Delivery Me thod Room Air 08/03/25 23:45 MDM - Female Medical Decision Making Patient is 35-year-old female that was seen by her primary care physician yesterday with complaints of discomfort of urination and just not feeling well. She has had 3 total doses of Bactrim. Despite her doses of Bactrim, she has had nausea and vomiting. She does deny abdominal pain. Right nephrolithiasis of less than 4 mm appears that patient will be able to pass this on her own. Called [facility] that has pelvic peballith, not nephrolithiasis. Will treat for UTI. Urine analysis repeated since she had 70 squamous cells and was tainted. Medical Records I reviewed the patient's medical records. Lab Data I reviewed the patient's lab results. 08/03/25 19:55 08/03/25 19:55 Radiology Impressions Abdomen/Pelvis CT 08/03/25 21:43 IMPRESSION: 1. No acute intra-abdominal or pelvic process. 2. No evidence of urolithiasis 3. Other nonemergent findings above. Laboratory Results WBC 9.38 10^3/uL (3.29-11.43) 08/03/25 19:55 RBC 4.83 10^6/uL (3.85-5.65) 08/03/25 19:55 Hgb 14.90 g/dL (11.27-16.99) 08/03/25 19:55 Hct 44.8 % (36-47) 08/03/25 19:55 MCV 92.8 fl (85-98) 08/03/25 19:55 MCH 30.8 pg (27-33) 08/03/25 19:55 MCHC 33.3 g/dL (30-55) 08/03/25 19:55 RDW 12.6 % (12.1-15.1) 08/03/25 19:55 Plt Count 295 10^3/cmm (157-399) 08/03/25 19:55 MPV 9.0 fL (7.4-10.4) 08/03/25 19:55 Neut % (Auto) 78.3 % 08/03/25 19:55 Lymph % (Auto) 12.9 % 08/03/25 19:55 [place] % (Auto) 5.2 % 08/03/25 19:55 Eos % (Auto) 2.6 % 08/03/25 19:55 Baso % (Auto) 0.7 % 08/03/25 19:55 Neut # (Auto) 7.34 10^3/uL (1.8-7.7) 08/03/25 19:55 Lymph # (Auto) 1.2 10^3/uL (0.8-4.8) 08/03/25 19:55 [place] # (Auto) 0.5 10^3/uL (0.2-0.9) 08/03/25 19:55 Eos # (Auto) 0.2 10^3/uL (0.0-0.8) 08/03/25 19:55 Baso # (Auto) 0.1 10^3/uL (0.0-0.1) 08/03/25 19:55 Nucleated RBC % (auto) 0 % 08/03/25 19:55 Nucleated RBCs # 0.0 /100WBC 08/03/25 19:55 Sodium 133 mmol/L (136-145) L 08/03/25 19:55 Potassium 4.3 mmol/L (3.5-5.1) 08/03/25 19:55 Chloride 94 mmol/L (98-107) L 08/03/25 19:55 Carbon Dioxide 23 mmol/L (22-29) 08/03/25 19:55 Anion Gap 20.3 (5-19) H 08/03/25 19:55 BUN 4 mg/dL (6-20) L 08/03/25 19:55 Creatinine 0.8 mg/dL (0.5-0.9) 08/03/25 19:55 GFR Calculation 80.7 mL/min (90-130) L 08/03/25 19:55 Glucose 104 mg/dL (65-115) 08/03/25 19:55 Calculated Osmolality 273 mOsm/kg (285-295) L 08/03/25 19:55 Calcium 9.5 mg/dL (8.5-10.5) 08/03/25 19:55 Total Bilirubin 0.6 mg/dL (0.15-1.2) 08/03/25 19:55 AST 7 U/L (0-32) 08/03/25 19:55 ALT 18 U/L (0-33) 08/03/25 19:55 Alkaline Phosphatase 75 U/L (35-105) 08/03/25 19:55 Total Protein 8.0 g/dL (6.6-8.7) 08/03/25 19:55 Albumin 4.7 g/dL (3.5-5.2) 08/03/25 19:55 Globulin 3.3 g/dL (1.3-4.6) 08/03/25 19:55 Lipase 17 U/L (13-60) 08/03/25 19:55 Urine Color Dark yellow (Yellow) A 08/03/25 21: Urine Appearance Cloudy (CLEAR) A 08/03/25 21:18 Urine pH 6.5 (5-7) 08/03/25 21:18 Ur Specific [place] 1.034 (1.005-1.030) H 08/03/25 21:18 Urine Protein 1+ (Negative) A 08/03/25:18 Urine Glucose (UA) Negative (Normal) 08/03/25 21:18 Urine Ketones 1+ (Negative) H 08/03/25: Urine Blood 2+ (Negative) A 08/03/25: Urine Nitrate Positive (Negative) A 08/03/25 21:18 Urine Bilirubin 1+ (Negative) H 08/03/25 21:18 Urine Urobilinogen 1.0 mg/dL (Negative) 08/03/25 21:18 Ur Leukocyte Esterase 1+ (Negative) A 08/03/25 21:18 Urine RBC 51-100 /hpf (0-2) H 08/03/25 21:18 Urine WBC 6-10 /hpf (0-5) 08/03/25 21:18 Ur Squamous Epith Cells 21-50 /hpf (0-5) H 08/03/25 21:18 Amorphous Sediment Not Reportable 08/03/25 23:44 Urine Bacteria 3+ /hpf (NONE) H 08/03/25 21:18 Hyaline Casts 5.77 /lpf 08/03/25 21:18 All radiology interpretation(s) finalized by discharge Discharge Plan Discharge Patient Disposition: Home Clinical Impression: Pyuria, N&V (nausea and vomiting) Condition: Stable Prescriptions: New cefdinir 300 mg capsule 300 mg PO BID 10 Days Qty: 20 0RF ondansetron 4 mg tablet,disintegrating 4 mg PO Q8H PRN (Reason: nausea and vomiting) 4 Days Qty: 14 0RF No Action ibuprofen 200 mg tablet 400 mg PO Q6H PRN (Reason: PAIN/FEVER) Rx Instructions: 2-3 at a time as needed norethindrone (contraceptive) [Cynthia] 0.35 mg tablet 0.35 mg PO DAILY sulfamethoxazole-trimethoprim [Bactrim DS] 800-160 mg tablet 1 tab PO BID Qty: 20 0RF clotrimazole 1 % cream 1 applic topical BID 14 Days Qty: 30 0RF mupirocin 2 % ointment 1 applic topical BID Qty: 22 0RF Discharge Orders: Discharge ED (Routine); Ordered 08/03/25 Ordered By: Jessica Poe Referrals: Serrano,NHUNG Choudhary [Primary Care Provider, Nurse Practitioner] Discharge Diet: Clear Liquid Patient Instructions: Urinary Tract Infection in Women (ED), Patient Portal & [facility] Instructions Activity Restrictions/Additional Instructions: - Follow-up with your doctor. Call for follow-up on Tuesday. -Your urine is awaiting culture. Your antibiotics are at the pharmacy. Nausea medication is at the pharmacy. Obtain this early in the morning and start as directed. - Return to ED with worsening nausea, vomiting, or if abdominal pain becomes worse, or temperature 100.4 ?F or greater. -Take a probiotic daily or active culture to prevent infectious diarrhea Thank you for choosing [facility] for your healthcare needs today. You have been screened and evaluated and felt safe for discharge. Health conditions do change or evolve sometimes and as such it is important that you follow up with your Primary Doctor to be re checked, 3-5 days is a general good time frame for follow up. You are always welcome to return to the ED for re assessment if your symptoms are worsening or you have new concerns Print Language: Grenadian Coding Level of Care Code ED Med Dir for Yamileth Connell
[2025-08-03 21:14] VITALS: BP 104/78; PULSE 95; RESP 16; O2SAT 96
[2025-08-03 21:24] LABS: Glucose Urine UA Negative (Normal); Nitrate Urine Positive (Negative)
[2025-08-03 21:26] LABS: Specific Gravity, Urine 1.034 (1.005-1.030)
[2025-08-03 21:29] LABS: Add Urine Microscopic? YES; Universal Test for UA Present (0)
--- NOTE | 2025-08-03 21:43 | CTR_ITS ---
PROCEDURE INFORMATION: Exam: CT Abdomen And Pelvis Without Contrast Exam date and time: 08/03/2025 9:57 PM Age: 35 years old Clinical indication: Abdominal pain; Localized; Lower abd pain with hematuria. Currently on abx for UTI. TECHNIQUE: Imaging protocol: Computed tomography of the abdomen and pelvis without contrast. Radiation optimization: All CT scans at this facility use at least one of these dose optimization techniques: automated exposure control; mA and/or kV adjustment per patient size (includes targeted exams where dose is matched to clinical indication); or iterative reconstruction. COMPARISON: CT abdomen pelvis w con* [id number] 05/09/2019 10:07 PM RADIATION DOSE METRICS: Total DLP (mGy-cm): 709.59 FINDINGS: Lungs: Mild dependent changes in the posterior lower lobes. Heart: Heart size is within normal limits. There is no pericardial effusion or pericardial thickening. Liver: The liver is normal. No hepatic masses are identified. Gallbladder and biliary ducts: Gallbladder is contracted. There is a small gallstone in the gallbladder. No gallbladder wall thickening or cholecystic inflammatory change. No biliary ductal dilatation. Pancreas: The pancreas is normal. Spleen: The spleen is normal. Adrenal glands: The adrenal glands are normal. Kidneys and ureters: No renal calcifications are identified. There is no hydronephrosis. Stomach and bowel: Small gastric diverticulum is incidentally noted. Mild colonic diverticulosis without diverticulitis. Mild retained colonic stool. There is no large or small bowel obstruction. There is no evidence of bowel wall thickening. Appendix: No evidence of acute appendicitis. Intraperitoneal space: No inflammatory changes are identified. There is no free fluid or fluid collection seen. There is no pneumoperitoneum. Vasculature: The aorta is normal in course and caliber. No significant atherosclerotic calcifications are present. Lymph nodes: No enlarged lymph nodes are identified. Urinary bladder: The bladder is decompressed and collapsed. No abnormality identified. Reproductive: The uterus is present. Bones/joints: No acute osseous abnormalities are seen. Soft tissues: Tiny periumbilical hernia containing only fat. CT/CT abdomen pelvis wo con [id number] IMPRESSION: 1. No acute intra-abdominal or pelvic process. 2. No evidence of urolithiasis 3. Other nonemergent findings above.
[2025-08-03] MEDS: cefTRIAXone 1,000 mg SDV 1000 MG IVP (22:13)
[2025-08-03] MEDS: orphenadrine 30 mg/mL Inj 2 mL 60 MG IVP (22:17)
[2025-08-03 22:19] VITALS: PULSE 95; RESP 16; O2SAT 96
[2025-08-03 23:45] VITALS: BP 103/61; PULSE 101; RESP 17; O2SAT 96
[2025-08-03 23:49] LABS: Glucose Urine UA Negative (Normal); Nitrate Urine Positive (Negative); Specific Gravity, Urine 1.018 (1.005-1.030)
[2025-08-03 23:54] LABS: Add Urine Microscopic? YES
[2025-08-03] MEDS: ondansetron hcl ODT 4 mg Tab PO (23:59)
[2025-08-04] MEDS: ondansetron hcl ODT 4 mg Tab PO
[2025-08-04 00:07] VITALS: BP 113/80; PULSE 90; RESP 16; O2SAT 95
== END 2025-08-04 00:08 | disposition home or self-care (01) ==
PROVIDERS: Emergency Provider Physician Assistant; PCP Nurse Practitioner Family
DX: R82.81 Pyuria (principal); R11.2 Nausea with vomiting, unspecified; Z72.0 Tobacco use
CPT/HCPCS: 36415; 74176; 80053; 81001; 83690; 85025; 96361; 96374; 96375; 99285; J0696; J1885; J2360; J2405; J7120; Q0162